=== PATIENT | female | born 1965 | race American Indian/Alaskan Native ===

== ENCOUNTER 2017-06-01 14:01 | Outpatient (CLI) | payer BC ==
--- NOTE | 2017-06-02 11:37 | Magnetic Resonance Report ---
MRI CERVICAL SPINE WITHOUT CONTRAST: 06/01/17 CLINICAL: Neck pain with numbness and tingling in both hands. TECHNIQUE: Sagittal T1,T2 and STIR and axial gradient T2* sequences on a 1.5 Kesha magnet. FINDINGS:Straightening of the C-spine and loss of the normal cervical lordosis. Normal vertebral body height, alignment and disc spaces through T4. Normal marrow signal. Mild disc space narrowing at C5-6 and C6-7. The rest of the disc spaces are normal. The spinal cord is normal size with normal signal. No cord lesion. The cerebellar tonsils are normal position. C2-3: Intact. C3-4:Small focal central and right paracentral disc protrusion producing effacement of the thecal sac and mild mass effect on the cord. Cord signal is normal. No neural foraminal narrowing. C4-5: Intact. C5-6:A moderate size broad-based left paracentral and left foraminal disc-osteophyte producing mild effacement of the thecal sac but no cord compression and mild left neural foraminal narrowing. C6-7:Small broad-based disc-osteophyte is mild effacement of the thecal side and no cord compression. Small broad-based left foraminal disc-osteophyte producing mild left neural foraminal narrowing. C7-T1:Intact. IMPRESSION: Degenerative disc disease with disc protrusions and disc-osteophytes at C3-4, C5-6 and C6-7. Mild mass effect on the cord by the disc protrusion at C3-4. However, no cord lesion. Mild left neural foraminal narrowing secondary to disc-osteophytes at C5-6 and C6-7.
--- NOTE | 2017-06-02 15:47 | Magnetic Resonance Report ---
MRI LUMBAR SPINE WITHOUT CONTRAST: 06/01/17 CLINICAL: Low back pain. TECHNIQUE: Sagittal and axial T1 and T2, and sagittal STIR sequences on a 1.5 Kesha magnet. FINDINGS: Straining of the L-spine with loss of some of the normal cervical lordosis. Normal vertebral body height and alignment. Disc space narrowing and endplate irregularity at L4-5 and L5-S1. Modic endplate changes at L4-5 and L5-S1. The overall marrow signal is normal. The conus medullaris is normal and terminates at L2. L1-2: Intact. L2-3: Intact. L3-4: Intact. L4-5: Mild circumferential disc bulge and a moderately large central and left paracentral disc protrusion producing impingement and displacement of the left L5 nerve root. Mild bilateral neural foraminal narrowing. L5-S1: Mild circumferential disc bulge. No neural foraminal narrowing. IMPRESSION: 1. L4-5 degenerative disc disease with a moderately large central and left paracentral disc protrusion producing impingement and displacement of the left L5 nerve root. 2. L5-S1 degenerative disc disease with mild circumferential disc bulge and no disc protrusion or nerve root impingement. 3. Mild bilateral neural foraminal narrowing at L4-5.
== END 2017-06-01 14:02 | disposition home or self-care (01) ==
LOC: SPVIMAG 14:01
PROVIDERS: ATTEND Family Medicine
DX: M51.37 Other intervertebral disc degeneration, lumbosacral region (principal); M50.31 Other cervical disc degeneration, high cervical region; M50.322 Other cervical disc degeneration at C5-C6 level; M50.323 Other cervical disc degeneration at C6-C7 level; M40.292 Other kyphosis, cervical region; M25.78 Osteophyte, vertebrae; R20.2 Paresthesia of skin
CPT/HCPCS: 72141; 72148

== ENCOUNTER 2017-07-27 10:39 | Outpatient (CLI) | payer BC ==
--- NOTE | 2017-07-28 10:22 | Mammography Report ---
BILATERAL DIGITAL SCREENING MAMMOGRAM with CAD: 07/27/17 10:39:00 CLINICAL: Routine screening. COMPARISON:06/01/16 and 06/22/16 FINDINGS: There are scattered areas of fibroglandular density. No mass, architectural distortion or suspicious calcifications. IMPRESSION: No mammographic evidence of malignancy. BI-RADS CATEGORY: 2 -- Benign RECOMMENDATION: Routine mammographic screening in one year. COMMENT: Patient follow-up letters are generated by our [employer] application.
== END 2017-07-27 10:40 | disposition home or self-care (01) ==
LOC: SPVWC 10:39
PROVIDERS: ATTEND Family Medicine
DX: Z12.31 Encounter for screening mammogram for malignant neoplasm of breast (principal)
CPT/HCPCS: 77067; G0202

== ENCOUNTER 2019-06-23 12:40 | Outpatient (CLI) | payer BC ==
--- NOTE | 2019-06-26 15:32 | Mammography Report ---
BONE DEXA CLINICAL: Postmenopausal. TECHNIQUE: 3 site bone DEXA performed on an Hologic scanner. FINDINGS: The average BMD of the lumbar spine L1-L4 is 1.032g/cm squared with a T score of -1.1 and a Z score o f 0. The average total BMD of the left hip is 1.068 g/cm squared with a T score of +0.2and a Z score of +0 .7. The left femoral neck BMD is 0.714 g/cm squared with a T score of -1.7 and a Z score of -1.0. IMPRESSION: 1. WHO classification: Osteopenia with increased fracture risk based on spine measurements. 2. WHO classification Osteopenia with increased fracture risk based on left femoral neck measurements . RECOMMENDATION: Clinical correlation and routine screening. Definitions: BMD equal bone mineral density T score = BMD related to peak bone mass of young adult ([place] expressed an standard deviation) Z score = age-matched BMD expressed in SD World health organization (WHO) diagnostic criteria Normal T score greater than equal to 1 standard deviation Osteopenia T score between -1 and -2.4 standard deviation Osteoporosis T score -2.5 standard deviation or below. Note: BMD is not the only risk factor for fracture; also consider factors such as the patient's age, risk of falling, previous osteoporotic fracture, family history of osteoporotic fractures, current sm oker and low body weight. Z scores are not calculated if greater than 80 years of age. Signer Name: Ricardo Brandt MD Signed: 06/26/2019 3:28 PM Workstation Name: [id number]
== END 2019-06-23 12:41 | disposition home or self-care (01) ==
LOC: SPVWC 12:40
PROVIDERS: ATTEND Family Medicine
DX: Z13.820 Encounter for screening for osteoporosis (principal); Z78.0 Asymptomatic menopausal state
CPT/HCPCS: 77080

== ENCOUNTER 2019-09-07 08:19 | Outpatient (CLI) | payer BC ==
--- NOTE | 2019-09-07 11:09 | Mammography Report ---
DIGITAL SCREENING MAMMOGRAM WITH CAD, 09/07/2019 INDICATION: Routine screening mammography. TECHNIQUE: Digital bilateral 2D mammography was obtained in the craniocaudal and mediolateral obliq ue projections. This examination was interpreted with the benefit of Computer-Aided Detection analysi s. COMPARISON: 08/19/2018 FINDINGS: Breast Density: There are scattered areas of fibroglandular density. There is no evidence of dominant mass, suspicious calcifications or architectural distortion in eithe r breast. IMPRESSION: No mammographic evidence of malignancy. Follow up recommendation: Routine yearly BI-RADS Category 1: Negative. A "normal" or negative report should not discourage follow up or biopsy of a clinically significant f inding. A written summary of these findings will be mailed to the patient. The patient will be entered into a mammography reporting system which will generate a reminder letter for the patient's next appointmen t at the appropriate interval. The [employer] recommends yearly mammograms starting at age 40 and continuing as l radha as a woman is in good health. Breast MRI is recommended for women with an approximate 20-25% or greater lifetime risk of breast cancer, including women with a strong family history of breast or ova amilcar cancer or who have been treated for Hodgkin's disease. Signer Name: Ricardo Brandt MD Signed: 09/07/2019 11:05 AM Workstation Name: [id number]
== END 2019-09-07 08:20 | disposition home or self-care (01) ==
LOC: SPVWC 08:19
PROVIDERS: ATTEND Family Medicine
DX: Z12.31 Encounter for screening mammogram for malignant neoplasm of breast (principal)
CPT/HCPCS: 77067

== ENCOUNTER 2020-09-09 10:29 | Outpatient (CLI) | payer BC ==
--- NOTE | 2020-09-09 11:25 | Mammography Report ---
DIGITAL SCREENING MAMMOGRAM WITH CAD, 09/09/2020 CLINICAL INFORMATION / INDICATION: Routine screening mammography. SCREENING MAMMO TECHNIQUE: Digital bilateral 2D mammography was obtained in the craniocaudal and mediolateral obliqu e projections. This examination was interpreted with the benefit of Computer-Aided Detection analysis . COMPARISON: Prior mammograms 09/07/2019 and 08/19/2018 FINDINGS: Breast Density: There are scattered areas of fibroglandular density. No dominant mass, suspicious calcifications, or architectural distortion in either breast. There has been no significant change compared with the prior examinations. IMPRESSION: No mammographic evidence of malignancy. Follow up recommendation: Routine yearly BI-RADS Category 1: Negative. A "normal" or negative report should not discourage follow up or biopsy of a clinically significant f inding. A written summary of these findings will be mailed to the patient. The patient will be entered into a mammography reporting system which will generate a reminder letter for the patient's next appointmen t at the appropriate interval. The [employer] recommends yearly mammograms starting at age 40 and continuing as l radha as a woman is in good health. Breast MRI is recommended for women with an approximate 20-25% or greater lifetime risk of breast cancer, including women with a strong family history of breast or ova amilcar cancer or who have been treated for Hodgkin's disease. Signer Name: Tayler Mathews MD Signed: 09/09/2020 11:20 AM Workstation Name: [id number]
== END 2020-09-09 10:30 | disposition home or self-care (01) ==
LOC: SPVWC 10:29
PROVIDERS: ATTEND Family Medicine
DX: Z12.31 Encounter for screening mammogram for malignant neoplasm of breast (principal)
CPT/HCPCS: 77067

== ENCOUNTER 2020-12-30 07:16 | Outpatient (CLI) | payer BC ==
--- NOTE | 2020-12-30 08:34 | Ultrasound Report ---
ULTRASOUND BREAST LEFT LIMITED, 12/30/2020 CLINICAL INFORMATION / INDICATION: Papillary mass in the left axilla. TECHNIQUE: Targeted ultrasound evaluation was performed of the area of interest. COMPARISON: Prior mammogram 09/09/2020 FINDINGS: Sonographic evaluation of the left axilla in the area of the palpable lump shows a hypoechoic oval ma ss within the skin of the left axilla, measuring approximately 10 x 4 mm. This most likely represents area of folliculitis or possibly, but less likely, developing sebaceous cyst. There is some minimal surrounding vascularity. Normal lymph nodes are identified in the left axilla. IMPRESSION: 10 x 4 mm hypoechoic mass is present within the skin of the left axilla and corresponds t o the palpable lump as noted by the patient. This is most likely area of folliculitis. Please correla te clinically to ensure area resolves with medical therapy. Follow up recommendation: Clinical correlation to ensure area resolves. Otherwise, resumption of marie al screening mammography. BI-RADS Category 2: Benign. A normal or "negative" report should not preclude biopsy or follow-up of a clinically suspicious find ing. Signer Name: Mone Hall MD Signed: 12/30/2020 8:30 AM Workstation Name: [id number]
== END 2020-12-30 07:17 | disposition home or self-care (01) ==
LOC: US 07:16
PROVIDERS: ATTEND Family Medicine
DX: R22.30 Localized swelling, mass and lump, unspecified upper limb (principal)